=== PATIENT | male | born 1995 | race Asian ===

== ENCOUNTER → 2016-09-02 | Outpatient (CLI) | payer OTHER ==
[2016-09-02 20:23] LABS: BASO % 0.2 %; BASO ABS # 0.02 K/uL (0-0.2); COMPLETE YES; EOS % 1.2 %; HEMATOCRIT 47.3 % (42-52); IG% 0.2 %; LYMPH % 16.2 %; MEAN CELL VOLUME 88.6 fL (80-100); MEAN CORPUSCULAR HEMOGLOBIN 31.8 pg (25-34); MEAN CORPUSCULAR HGB CONC 35.9 g/dl (32-36); MONO % 7.8 %; NEUT % 74.4 %; PLATELET COUNT 21 K/uL (130-400); PLT ESTIMATE SIGNIFIC DECREASED; RED BLOOD COUNT 5.34 M/uL (4.7-6.1); WHITE BLOOD COUNT 8.64 K/uL (4.8-10.8)
== END | disposition home or self-care (01) ==
LOC: C.LAB 19:08
PROVIDERS: ATTEND Internal Medicine Hematology & Oncology
DX: D69.3 Immune thrombocytopenic purpura (principal)

== ENCOUNTER → 2016-11-04 | Outpatient (CLI) | payer OTHER ==
[2016-11-04 19:10] LABS: HEMATOCRIT 44.5 % (42-52); MEAN CELL VOLUME 87.6 fL (80-100); MEAN CORPUSCULAR HEMOGLOBIN 32.1 pg (25-34); MEAN CORPUSCULAR HGB CONC 36.6 g/dl (32-36); PLATELET COUNT 12 K/uL (130-400); RED BLOOD COUNT 5.08 M/uL (4.7-6.1); WHITE BLOOD COUNT 5.46 K/uL (4.8-10.8)
[2016-11-04 19:11] LABS: BASO ABS # 0.05 K/uL (0-0.2); BASOPHIL % 0.9 % (0-2); COMPLETE YES; EOSINOPHIL % 2.6 %; GIANT PLATELETS 1+; LYMPH ABS # 0.76 K/uL (1.2-3.4); LYMPHOCYTE % 13.9 %; NEUTROPHILS % 54.7 %; PLT ESTIMATE SIGNIFIC DECREASED; VARIANT LYM ABS # 1.14 K/uL; VARIANT LYMPHOCYTE % 20.9 %
== END | disposition home or self-care (01) ==
LOC: C.LAB 18:04
PROVIDERS: ATTEND Internal Medicine Hematology & Oncology
DX: D69.3 Immune thrombocytopenic purpura (principal)